=== PATIENT | female | born 1935 | race Caucasian/White ===

== ENCOUNTER 2021-10-15 12:56 | Inpatient (IN) | payer MEDICARE, OTHER ==
[~2021-10-15] VITALS: Ht 162.6 cm; Wt 57.6 kg
--- NOTE | 2021-10-15 13:17 | NUR ---
PT [facility] FROM [facility], CALLED 4 SEASONS PER NURSE, PT WAS NOTED TO BE LETHARGIC AND WAS C/O CHEST PAIN, PT DENIES CHEST PAIN INSIDE SALES ASSISTANT AND IS SAYING THAT SHE IS HUNGRY. GOWNED AND PLACED ON MONITOR. VSS INSIDE SALES ASSISTANT. AWAITING MD GRACE.
--- NOTE | 2021-10-15 13:28 | NUR ---
DR ERICKSON AT BEDSIDE FOR EVAL.
--- NOTE | 2021-10-15 13:39 | NUR ---
ROLL TESTER AT BEDSIDE FOR BLOOD DRAW.
--- NOTE | 2021-10-15 14:16 | NUR ---
DR WILKS AT BEDSIDE FOR EVAL.
[2021-10-15 14:20] LABS: BASOPHILS % (AUTO) 0.2 % (0.0-2.0); EOSINOPHILS % (AUTO) 1.4 % (0.0-6.0); HEMATOCRIT 42 % (33-45); HEMOGLOBIN 13.5 g/dL (11.5-14.8); LYMPHOCYTES # (AUTO) 0.8 K/uL (0.8-4.8); LYMPHOCYTES % (AUTO) 15.9 % (20.0-44.0); MEAN CORPUSCULAR HGB CONC 32 g/dl (31.0-36.0); MEAN CORPUSCULAR VOLUME 95 fL (82-100); MONOCYTES # (AUTO) 0.3 K/uL (0.1-1.30); MONOCYTES % (AUTO) 5.6 % (2.0-12.0); NEUTROPHILS % (AUTO) 76.9 % (43.0-81.0); PLATELET COUNT (AUTO) 149 K/uL (150-450); RED BLOOD CELL COUNT(AUTO) 4.39 MIL/uL (4.0-5.2); WHITE BLOOD COUNT (AUTO) 5.2 K/uL (4.3-11.0)
[2021-10-15] MEDS ORDERED: MEMA10TA PO (14:28)
[2021-10-15] MEDS ORDERED: MIRT-121 PO (14:28)
[2021-10-15] MEDS ORDERED: PANT20TA2 PO (14:28)
[2021-10-15] MEDS ORDERED: MELA3TAB41 PO (14:28)
[2021-10-15] MEDS ORDERED: AMLO5TAB4 PO (14:28)
[2021-10-15] MEDS ORDERED: ASCO500C17 PO (14:28)
[2021-10-15] MEDS ORDERED: DOCU-141 PO (14:28)
[2021-10-15] MEDS ORDERED: CHOL200013 PO (14:28)
[2021-10-15 15:22] LABS: ALANINE AMINOTRANSFERASE 19 U/L (12-78); ALBUMIN 3.5 g/dL (3.4-5.0); ALKALINE PHOSPHATASE 75 U/L (46-116); ASPARTATE AMINOTRANSFERASE 15 U/L (15-37); BILIRUBIN,DIRECT 0.1 mg/dL (0.0-0.2); BILIRUBIN,TOTAL 0.6 mg/dL (0.2-1.0); CALCIUM, SERUM 8.9 mg/dL (8.5-10.1); CARBON DIOXIDE 30 mmol/L (21-32); CHLORIDE 103 mmol/L (98-107); CREATININE 0.9 mg/dL (0.6-1.3); GLUCOSE 109 mg/dL (74-106); POTASSIUM 4.1 mmol/L (3.5-5.1); SODIUM SERUM 140 mmol/L (136-145); TOTAL PROTEIN, SERUM 6.5 g/dL (6.4-8.2); UREA NITROGEN, BLOOD 29 mg/dL (7-18)
[2021-10-15] MEDS ORDERED: ASPIRIN 300 MG/SUPP.RECT RC ONE ×2 (16:00→16:13)
--- NOTE | 2021-10-15 16:13 | NUR ---
RAPID COVID COLLECTED AND SENT
--- NOTE | 2021-10-15 20:03 | NUR ---
REPORT GIVEN TO LA (LEAH).
[2021-10-15 21:00] VITALS: BP 103/65
--- NOTE | 2021-10-15 21:03 | NUR ---
PT TRANSFERRED TO 3 W PER [facility]S PROTOC[facility].
--- NOTE | 2021-10-15 21:15 | NUR ---
osha inspector notes Received Pt from LEAH Lane. Pt is alert and orientedX1 with episode of confusion. On room air. No SOB. No S/s of distress noted. VS is stable. Tele monitor showed SR with BBB hr at 63. IV site at R wrist # 22 is clean, intact and flushes well. Skin assessment is done and performed. Pictures of skin issues are taken. Reorient Pt to the room and the use of call light. Pt's belonging was checked by LANE Steward. Safety precautions is maintained. bed at low position, brakes locked, side rails upX3, hob elevated and call light is within reach. Will continue to monitor.
--- NOTE | 2021-10-15 21:28 | NUR ---
RN notes Called and spoke with ER nurse LEAH Saldana regarding Pt white sweater. Les will call back.
[2021-10-15 21:30] VITALS: BP 128/76
[2021-10-15] MEDS ORDERED: ACETAMINOPHEN 325 MG TABLET PO PRN (21:30)
[2021-10-15] MEDS ORDERED: Z GUARD REMEDY 4 OZ OINT TP PRN (21:30)
[2021-10-15] MEDS ORDERED: ONDANSETRON HCL/PF 4 MG/2 ML VIAL IVP PRN (21:30)
[2021-10-15] MEDS ORDERED: ENOXAPARIN SODIUM 40 MG/0.4 ML DISP.SYRIN SQ SCH (21:30)
--- NOTE | 2021-10-15 21:50 | NUR ---
RN notes Nichelle, SPANISH TUTOR brought Pt's white sweater from ER and placed in Pt's belonging.
[2021-10-15] MEDS ORDERED: MIRTAZAPINE 15 MG TABLET PO SCH (22:00)
--- NOTE | 2021-10-15 23:37 | NUR ---
RN notes Pt is keep removing tele monitor, and IV and trying to get out the bed. bed alarm is on. Pt is alert and orientedX1 and confused. Informed and notified Dr. Max. ordered seroquel 25 mg/po/one time. Ordered carry out. will continue to monitor.
--- NOTE | 2021-10-15 23:41 | NUR ---
[facility]el 25 mg/po/one time.
--- NOTE | 2021-10-15 23:45 | NUR ---
RN notes administered seroquel 25 mg/po/one time per MD ordered.
[2021-10-16] VITALS: BP 130/65
[2021-10-16] MEDS ORDERED: QUETIAPINE FUMARATE 25 MG TABLET PO ONE
--- NOTE | 2021-10-16 01:51 | NUR ---
RN notes Pt is trying to get out the bed since Pt came to our unit. Pt also removing IV twice, removing tele monitor and throwing blanket and pillow. Pt is A/OX1, confused and non compliant with safety. Explained risks and benefits. Informed and notified Dr. Max. ordered bilateral soft wrists restraints. Order carried out. will continue to monitor.
[2021-10-16 04:00] VITALS: BP 132/74
[2021-10-16 04:17] LABS: MONOCYTES # (AUTO) 0.3 K/uL (0.1-1.30); NEUTROPHILS # (AUTO) 2.3 K/uL (1.8-8.9)
[2021-10-16 04:36] LABS: BASOPHILS % (AUTO) 0.3 % (0.0-2.0); EOSINOPHILS % (AUTO) 1.3 % (0.0-6.0); HEMATOCRIT 39 % (33-45); HEMOGLOBIN 12.9 g/dL (11.5-14.8); LYMPHOCYTES # (AUTO) 1.2 K/uL (0.8-4.8); LYMPHOCYTES % (AUTO) 31.8 % (20.0-44.0); MEAN CORPUSCULAR HGB CONC 33 g/dl (31.0-36.0); MEAN CORPUSCULAR VOLUME 94 fL (82-100); MONOCYTES % (AUTO) 7.1 % (2.0-12.0); NEUTROPHILS % (AUTO) 59.5 % (43.0-81.0); PLATELET COUNT (AUTO) 141 K/uL (150-450); RED BLOOD CELL COUNT(AUTO) 4.14 MIL/uL (4.0-5.2); WHITE BLOOD COUNT (AUTO) 3.9 K/uL (4.3-11.0)
--- NOTE | 2021-10-16 06:35 | NUR ---
RN closing notes Pt is resting bed comfortably. Pt is alert and orientedX1 with episode of confusion. On room air. No SOB. No S/s of distress noted. VS is stable. Tele monitor showed SR with BBB hr at 71. IV site at R wrist # 22 is clean, intact and SL. routine meds were given as ordered. Kept Pt clean, dry and comfortable. Safety precautions is maintained. bed at low position, brakes locked, side rails upX3, hob elevated and call light is within reach. Will endorse to am nurse for HAMZAH.
[2021-10-16 07:23] LABS: CREATININE 0.9 mg/dL (0.6-1.3); MAGNESIUM 1.8 mg/dL (1.8-2.4); PHOSPHORUS 3.4 mg/dL (2.5-4.9); POTASSIUM 3.6 mmol/L (3.5-5.1)
[2021-10-16] MEDS ORDERED: PANTOPRAZOLE 40 MG TABLET.DR PO SCH (07:30)
--- NOTE | 2021-10-16 07:35 | NUR ---
ms rn received on bed, awake,very confuse,not in any form of distress, respirations even and unlabored,no sob noted, has a sitter for safety and comfort,patient is getting out of bed, removing everything shr is connected to.will monitor patient.
[2021-10-16 08:00] VITALS: BP 128/66
--- NOTE | 2021-10-16 08:50 | NUR ---
ms [place] breakfast served, due meds given tolerating good.
[2021-10-16] MEDS ORDERED: MEMANTINE HCL 5 MG TABLET PO SCH (09:00)
[2021-10-16] MEDS ORDERED: DOCUSATE SODIUM 100 MG CAPSULE PO SCH (09:00)
[2021-10-16] MEDS ORDERED: AMLODIPINE BESYLATE 5 MG TABLET PO SCH (09:00)
[2021-10-16 10:40] LABS: CALCIUM, SERUM 9.4 mg/dL (8.5-10.1)
[2021-10-16 12:00] VITALS: BP 145/91
[2021-10-16 12:24] LABS: BILIRUBIN,TOTAL 0.8 mg/dL (0.2-1.0)
[2021-10-16 12:25] LABS: ALBUMIN 3.4 g/dL (3.4-5.0); TOTAL PROTEIN, SERUM 6.3 g/dL (6.4-8.2)
--- NOTE | 2021-10-16 13:00 | NUR ---
ms rn was seen by gregory junior w/ tony to be d/c today,all needs attended.
[2021-10-16 16:00] VITALS: BP 132/75
--- NOTE | 2021-10-16 16:25 | NUR ---
ms rn patient transferred to [place] via ambulance, report given to Ten for earle, all needs attended.
[2021-10-16 19:12] LABS: THYROID STIMULATING HORMONE 1.97 uIU/mL (0.358-3.74)
== END 2021-10-16 17:00 | DRG 302 ==
LOC: ER 13:00 → TRANSITION 18:36 → TELE 20:05
PROVIDERS: ADMIT Nurse Practitioner Acute Care; ATTEND Nurse Practitioner Acute Care
DX: I25.10 Atherosclerotic heart disease of native coronary artery without angina pectoris (principal); G93.41 Metabolic encephalopathy; D69.6 Thrombocytopenia, unspecified; F03.90 Unspecified dementia, unspecified severity, without behavioral disturbance, psychotic disturbance, mood disturbance, and anxiety; K21.9 Gastro-esophageal reflux disease without esophagitis; N18.9 Chronic kidney disease, unspecified; I12.9 Hypertensive chronic kidney disease with stage 1 through stage 4 chronic kidney disease, or unspecified chronic kidney disease; M19.90 Unspecified osteoarthritis, unspecified site; Z20.822 Contact with and (suspected) exposure to COVID-19
CPT/HCPCS: 36415; 71045-TC; 80048-TC; 80053-TC; 80061-TC; 80076-TC; 83735-TC; 84100-TC; 84443-TC; 84484-TC; 85025-TC; 87081-TC; 93307-TC; A4565; A6403; G0378; J1650

== ENCOUNTER 2021-11-17 16:46 | Emergency (ER) | payer MEDICARE, OTHER ==
[~2021-11-17] VITALS: Ht 167.6 cm; Wt 59.0 kg
[~2021-11-17 16:46] MED LIST: AMLO5TAB4 PO; ASCO500C17 PO; CHOL200013 PO; DOCU-141 PO; MELA3TAB41 PO; MEMA10TA PO; MIRT-121 PO; PANT20TA2 PO
[2021-11-17] MEDS: IV NS 0.9% 500 ML BAG IV ONE (17:00)
[2021-11-17] MEDS ORDERED: ACET-2605 PO (17:19)
[2021-11-17] MEDS ORDERED: ACET-868 PO (17:19)
[2021-11-17] MEDS ORDERED: CLON0.1T PO (17:19)
[2021-11-17] MEDS ORDERED: MAGN400O6 PO (17:19)
[2021-11-17] MEDS ORDERED: MAG30ORA PO (17:19)
[2021-11-17] MEDS ORDERED: NA P133E RC (17:19)
[2021-11-17] MEDS ORDERED: ASCO500T10 PO (17:19)
[2021-11-17] MEDS ORDERED: BISA10SU11 RC (17:19)
[2021-11-17 17:32] LABS: BASOPHILS % (AUTO) 0.3 % (0.0-2.0); EOSINOPHILS % (AUTO) 0.5 % (0.0-6.0); HEMATOCRIT 39 % (33-45); LYMPHOCYTES # (AUTO) 0.8 K/uL (0.8-4.8); LYMPHOCYTES % (AUTO) 15.7 % (20.0-44.0); MEAN CORPUSCULAR HGB CONC 33 g/dl (31.0-36.0); MEAN CORPUSCULAR VOLUME 94 fL (82-100); MONOCYTES # (AUTO) 0.2 K/uL (0.1-1.30); MONOCYTES % (AUTO) 4.8 % (2.0-12.0); NEUTROPHILS # (AUTO) 4.1 K/uL (1.8-8.9); NEUTROPHILS % (AUTO) 78.7 % (43.0-81.0); PLATELET COUNT (AUTO) 145 K/uL (150-450); RED BLOOD CELL COUNT(AUTO) 4.15 MIL/uL (4.0-5.2); WHITE BLOOD COUNT (AUTO) 5.2 K/uL (4.3-11.0)
[2021-11-17 17:47] LABS: CALCIUM, SERUM 9.1 mg/dL (8.5-10.1); CREATININE 1.1 mg/dL (0.6-1.3); POTASSIUM 4.3 mmol/L (3.5-5.1)
[2021-11-17 17:54] LABS: ALBUMIN 3.1 g/dL (3.4-5.0); BILIRUBIN,DIRECT 0.1 mg/dL (0.0-0.2); BILIRUBIN,TOTAL 0.4 mg/dL (0.2-1.0); TOTAL PROTEIN, SERUM 6.2 g/dL (6.4-8.2)
--- NOTE | 2021-11-17 19:35 | NUR ---
[facility] CALLED FOR TRANSPORT. ETA 30 MINUTES.
--- NOTE | 2021-11-17 19:46 | NUR ---
ATTEMPTED TO CALL [facility] [phone] FOR REPORT. NO ANSWER
--- NOTE | 2021-11-17 19:55 | NUR ---
report given to presley fletcher
--- NOTE | 2021-11-17 20:12 | NUR ---
[facility] AT BEDSIDE FOR TRANSPORT TO [facility]
[2021-11-17 20:13] VITALS: BP 121/60
== END 2021-11-17 20:35 ==
LOC: ER 16:50
DX: R55 Syncope and collapse (principal); E86.0 Dehydration; I12.9 Hypertensive chronic kidney disease with stage 1 through stage 4 chronic kidney disease, or unspecified chronic kidney disease; N18.9 Chronic kidney disease, unspecified; M15.9 Polyosteoarthritis, unspecified; Z79.899 Other long term (current) drug therapy; Z86.69 Personal history of other diseases of the nervous system and sense organs
CPT/HCPCS: 36415; 70450; 71045; 80048; 80076; 82962; 85025; 93005; 99285; J7040